=== PATIENT | female | born 1945 | race Caucasian/White ===

== ENCOUNTER 2017-10-25 11:21 | Emergency (ER) | payer MEDICARE ==
--- NOTE | 2017-10-25 14:32 | UC ---
Headache HPI - HPI Summary HPI Summary: headache that is starting in the back of her neck travels up over her head to her forehead--NSAIDS do make it better, no neuro defects, Is seeing a chiropractor for neck pain that seems to help at least momentarily-no fevers, chills, nausea or vomiting - History Of Current Complaint Chief Complaint: UCGeneralIllness Stated Complaint: HEADACHE Time Seen by Provider: 10/25/17 14:25 Hx Obtained From: Patient ?: No Onset/Duration: Gradual Onset, Lasting Weeks - 6, Still Present Onset Of Symptoms: Gradual Pain Intensity: 2 Timing: Intermittent, Lasting: - hours Character: Throbbing, Pressure Location of Headache: Diffuse - back of head radiating up over head some left sikhism pain Aggravating Factor(s): Nothing Allevating Factor(s): Medication - nsaids, Other (Noted In Comments) - sometimes chiropractor treatments help a bit Associated Signs And Symptoms: Positive: Negative - Allergies/Home Medications Allergies/Adverse Reactions: Allergies Allergy/AdvReac Type Severity Reaction Status Date / Time ENVIRONMENTAL Allergy SINUS Uncoded 10/25/17 13:45 SWELLS, ITCHY EYES Home Medications: Home Medications Lisinopril/HCTZ 10/12.5(NF) [Zestoretic 10/12.5(NF)] 1 tab PO DAILY 10/25/17 [ History Confirmed 10/25/17] Naproxen Sodium [Aleve] 220 mg PO BID PRN 10/25/17 [History Confirmed 10/25/17] [place]-3 Fatty Acids/Fish Oil [Fish Oil 1,000 mg Capsule] 1 each PO DAILY [History Confirmed 10/25/17] Potassium 99 mg PO DAILY 10/25/17 [History Confirmed 10/25/17] PMH/Surg Hx/FS Hx/Imm Hx Previously Healthy: No Endocrine History: Diabetes Cardiovascular History: Hypertension - Surgical History Surgical History: Yes Surgery Procedure, Year, and Place: 1979 HYSTERECTOMY, [facility]. 1969 OPEN CHOLECYSTECTOMY AND APPENDECTOMY, [facility] - Family History Known Family History: Positive: None - Social History Occupation: Retired Lives: With Family Alcohol Use: None Substance Use Type: None Smoking Status (MU): Former Smoker Type: Cigarettes Length of Time of Smoking/Using Tobacco: 3 YEARS Have You Smoked in the Last Year: No When Did the Patient Quit Smoking/Using Tobacco: 1966 Review of Systems Constitutional: Negative Skin: Negative Eyes: Negative ENT: Negative Respiratory: Negative Cardiovascular: Negative Gastrointestinal: Negative Genitourinary: Negative Motor: Negative Neurovascular: Negative Musculoskeletal: Negative Neurological: Headache Psychological: Negative Is Patient Immunocompromised?: No All Other Systems Reviewed And Are Negative: Yes Physical Exam Triage Information Reviewed: Yes Appearance: Well-Appearing, No Pain Distress, Obese Vital Signs: Initial Vital Signs Temp 97.8 F 10/25/17 13:38 Pulse 86 10/25/17 13:38 Resp 16 10/25/17 13:38 BP 160/94 10/25/17 13:38 Pulse Ox 95 10/25/17 13:38 Vital Signs Reviewed: Yes Eye Exam: Normal Eyes: Positive: Conjunctiva Clear ENT Exam: Normal ENT: Positive: Normal ENT inspection, Hearing grossly normal, Pharynx normal, TMs normal, Uvula midline. Negative: Nasal congestion, Tonsillar swelling, Tonsillar exudate, Trismus, Muffled voice, Hoarse voice, Dental tenderness, Sinus tenderness Dental Exam: Normal Neck exam: Normal Neck: Positive: Supple, Nontender, No Lymphadenopathy Respiratory Exam: Normal Respiratory: Positive: Chest non-tender, Lungs clear, Normal breath sounds, No respiratory distress, No accessory muscle use Cardiovascular Exam: Normal Cardiovascular: Positive: RRR, No Murmur, Pulses Normal, Brisk Capillary Refill Musculoskeletal Exam: Normal Musculoskeletal: Positive: Strength Intact, ROM Intact, No Edema Neurological Exam: Normal Neurological: Positive: Alert, Muscle Tone Normal Psychological Exam: Normal Skin Exam: Normal Diagnostics - Laboratory Diagnostic Studies Completed/Ordered: Ct Brain-no acute pathology - Radiology No standard instances Xray Interpretation: Positive (See Comments) - mild degenerative and osteoarthritic changes Radiology Interpretation Completed By: Radiologist Headache Course/Dx - Course Course Of Treatment: lab studies, take bp meds, follow with neurology and or PCP [facility] - Differential Dx/Diagnosis Provider Diagnoses: HYpertension in poor control, chronic headache, cervical spine arthritis Discharge - Discharge Plan Condition: Stable Disposition: HOME Patient Education Materials: Hypertension (ED), General Headache (ED) Referrals: [facility] [Outside] - As Soon As Possible Alonso Stevenson MD [Medical Doctor] - As Soon As Possible
--- NOTE | 2017-10-25 15:12 | RAD ---
HISTORY: Cervical pain, left-sided COMPARISONS: None VIEWS: 6, Frontal, lateral, open-mouth odontoid, and bilateral oblique views of the cervical spine. FINDINGS: The cervical spine is visualized from the skull base through T1. ALIGNMENT: The alignment is normal. VERTEBRAL BODIES: There is multilevel anterolateral marginal osteophyte formation. JOINTS: There is mild uncovertebral and facet hypertrophic change. On the oblique views, there is no osseous neural foraminal narrowing. INTERVERTEBRAL DISCS: There is diffuse loss of intervertebral disc height. SOFT TISSUE: The prevertebral soft tissues are normal. OTHER: The skull base is normal. The lung apices are clear. IMPRESSION: MILD DEGENERATIVE DISC DISEASE AND OSTEOARTHRITIS.
[2017-10-25 15:39] VITALS: BP 00/00
--- NOTE | 2017-10-25 15:45 | RAD ---
INDICATION: Headache. COMPARISON: There are no prior studies available for comparison. TECHNIQUE: Contiguous axial sections of the brain were obtained from the skull base to the vertex without contrast. FINDINGS: The ventricles, cisterns and sulci are enlarged consistent with diffuse atrophy. No significant focal abnormality or mass effect is seen. There is no evidence for hemorrhage. No significant focal osseous abnormality is seen. The visualized portion of the paranasal sinuses and mastoid air cells appear clear. IMPRESSION: NO EVIDENCE FOR ACUTE INTRACRANIAL ABNORMALITY.
[2017-10-25 18:39] LABS: ABS Basophils 0 10^3/ul (0-0.2); ABS Eosinophils 0.1 10^3/ul (0-0.6); ABS Lymphocytes 1.2 10^3/ul (1.0-4.8); ABS Monocytes 0.6 10^3/ul (0-0.8); ABS Neutrophils 9.1 10^3/ul (1.5-7.7); ABS Nucleated RBC 0 10^3/ul; Eosinophil % 0.9 % (0-6); Hematocrit 35 % (35-47); Hemoglobin 11.2 g/dl (12.0-16.0); Mean Corpuscular HGB Conc 32 g/dl (31-36); Mean Corpuscular Hemoglobin 31 pg (27-31); Mean Corpuscular Volume 97 fL (80-97); Mean Platelet Volume 9 um3 (7.4-10.4); Nucleated Red Blood Cells % 0; Platelet Count 241 10^3/ul (150-450); Red Blood Count 3.58 10^6/ul (4.0-5.4); Red Cell Distribution Width 15 % (10.5-15); White Blood Count 11.1 10^3/ul (3.5-10.8)
[2017-10-25 18:51] LABS: EGFR Non-African American 44.3 (>60)
--- NOTE | 2017-10-26 13:28 | UC ---
- Progress Note Progress Note: PLS CALL PATIENT AND ADVISE TO CALL PCP FOR F/U IN THE NEXT FEW WEEKS. SLIGHTLY ELEVATED WBC COUNT AND ELEVATED CRP. THIS IS LIKELY DUE TO ACUTE INFLAMMATORY CONDITION. SEEK FOLLOW-UP WITH YOUR PCP FOR RE-EVALUATION. SEVERAL OTHER SLIGHTLY ABNORMAL READINGS IN BLOOD COUNT AND ELECTROLYTES AND KIDNEY FUNCTION. NO ACUTE INTERVENTION REQUIRED BUT NEEDS TO BE FOLLOWED-UP BY PCP. - STEVEN SHAW MD
== END 2017-10-25 16:18 | disposition home or self-care (01) ==
LOC: UCEAST 11:21
DX: R51 Headache (principal); M50.30 Other cervical disc degeneration, unspecified cervical region; M47.812 Spondylosis without myelopathy or radiculopathy, cervical region; I10 Essential (primary) hypertension; E11.9 Type 2 diabetes mellitus without complications; E66.9 Obesity, unspecified; Z90.710 Acquired absence of both cervix and uterus; Z90.49 Acquired absence of other specified parts of digestive tract; Z87.891 Personal history of nicotine dependence
CPT/HCPCS: 36415; 70450; 72050; 80048; 85025; 85652; 86140; 99211; G0463

== ENCOUNTER 2017-11-27 09:39 | Day surgery (SDC) | payer MEDICARE ==
[2017-11-27] MEDS ORDERED: Bupivacaine 0.5% SDV PF* 10-30ML VIAL ONE (09:57)
[2017-11-27] MEDS ORDERED: Bupivacaine 0.25% SDV* 30 ML ONE (09:57)
[2017-11-27] MEDS ORDERED: Lidocaine 1%* 5 ML VIAL ONE (09:59)
[2017-11-27 10:00] VITALS: BP 186/59
[2017-11-27] MEDS ORDERED: Lidocaine 1.5% EPI 1:200,000* 30 ML SDV ONE (10:20)
--- NOTE | 2017-11-28 12:04 | OP ---
CC: French Ayala MD; Sayda Choudhury OD OPERATIVE REPORT: DATE OF OPERATION: 11/27/16 DATE OF : 41 SURGEON: Kamron Bridges MD. [employer]AW CARRIAGE OPERATOR: None. ANESTHESIA: 1% lidocaine plain with epinephrine used locally. PROCEDURE DIAGNOSIS: Left temporal headache. POSTPROCEDURE DIAGNOSIS: Left temporal headache. OPERATIVE PROCEDURE: Left temporal artery biopsy. ESTIMATED BLOOD LOSS: Minimal. SPECIMENS: Left temporal artery biopsy. DRAINS: None. COMPLICATIONS: None. COUNTS: Instrument, needle, and sponge counts were correct. DESCRIPTION OF PROCEDURE: The patient was brought to the operating room and placed on the table supi ne. Warming blanket was placed. The left temporal region was prepped and sterilely draped and time- out was performed. Local anesthetic was infiltrated into the skin and soft tissue and an oblique inc ision was made along the course of the palpable artery. Subcutaneous tissues were debrided and caute ry was used to achieve hemostasis. The left superficial temporal artery was identified and dissected free along its course for about 2.5 cm. The vessel was clipped proximally and distally and the inte rvening segment was excised and submitted to pathology in formalin. Hemostasis was assured. The wou nd was closed with 4-0 Vicryl in a running subcuticular fashion. DermaFlex was applied. The patient tolerated the procedure well. [id number]/[facility] #: [id number]
== END 2017-11-27 11:30 | disposition home or self-care (01) ==
LOC: OR 09:39
PROVIDERS: ATTEND Surgery
DX: R51 Headache (principal); I67.2 Cerebral atherosclerosis; Z87.891 Personal history of nicotine dependence; M31.6 Other giant cell arteritis; E11.9 Type 2 diabetes mellitus without complications; Z79.84 Long term (current) use of oral hypoglycemic drugs; I10 Essential (primary) hypertension
CPT/HCPCS: 88305

== ENCOUNTER 2021-04-30 01:58 | Inpatient (IN) ==
[2021-04-30] MEDS ORDERED: Furosemide 20 mg/2 ml IV VIAL IV SLOW PU ONE (04:16)
[2021-04-30 05:14] LABS: ABS Basophils 0.1 10^3/ul (0-0.2); ABS Eosinophils 0.1 10^3/ul (0-0.6); ABS Lymphocytes 0.5 10^3/ul (1.0-4.8); ABS Monocytes 0.5 10^3/ul (0-0.8); ABS Neutrophils 6.1 10^3/ul (1.5-7.7); Hematocrit 34 % (35-47); Hemoglobin 10.6 g/dL (12.0-16.0); Lymphocyte % 7.2 %; Mean Corpuscular HGB Conc 31 g/dL (31-36); Mean Corpuscular Hemoglobin 32 pg (27-31); Mean Corpuscular Volume 102 fL (80-97); Mean Platelet Volume 8.4 fL (7.4-10.4); Platelet Count 195 10^3/uL (150-450); Red Blood Count 3.33 10^6 /uL (3.70-4.87); Red Cell Distribution Width 16 % (10-15); White Blood Count 7.2 10^3/uL (3.5-10.8)
[2021-04-30 05:32] LABS: ALT 14 U/L (7-52); AST 23 U/L (13-39); Albumin 3.7 g/dL (3.2-5.2); Alkaline Phosphatase 75 U/L (35-149); Blood Urea Nitrogen 60 mg/dL (6-24); CO2 Carbon Dioxide 22 mmol/L (22-32); Calcium 8.7 mg/dL (8.6-10.3); Chloride 108 mmol/L (101-111); EGFR African American 22.7 (>60); EGFR Non-African American 18.8 (>60); Globulin 3.7 g/dL (2-4); Glucose 133 mg/dL (70-100); Sodium 139 mmol/L (135-145); Total Protein 7.4 g/dL (6.4-8.9)
[2021-04-30 05:38] LABS: Anion Gap 9 mmol/L (2-11); Potassium 5.2 mmol/L (3.5-5.0)
[2021-04-30 05:39] LABS: Troponin I 0.03 ng/mL (<0.03)
[2021-04-30 06:13] LABS: Magnesium 2.6 mg/dL (1.9-2.7)
[2021-04-30] MEDS ORDERED: cloNIDine 0.3 MG PATCH 0.3 MG/24 HR 7 DAY PATCH TRANSDERM SCH (07:00)
[2021-04-30] MEDS ORDERED: Furosemide 40 mg/4 ml IV VIAL IV SLOW PU SCH (09:00)
[2021-04-30] MEDS: Heparin 5000 UNITS/ML 1 mL VIAL SUBCUT SCH ×2 (09:33→20:02)
[2021-04-30 10:18] LABS: Troponin I 0.03 ng/mL (<0.03)
[2021-04-30] MEDS: Aspirin EC 81 mg TAB.EC (enteric coated) PO SCH (10:41)
[2021-04-30] MEDS ORDERED: Atropine 1 MG/ML INJ 1 ML VIAL IV PUSH PRN ×2 (14:28→17:43)
[2021-04-30 15:24] LABS: TSH Ultra Thyroid Stim Horm 10.73 mcIU/mL (0.34-5.60)
[2021-04-30 15:25] LABS: CO2 Carbon Dioxide 20 mmol/L (22-32); Calcium 8.7 mg/dL (8.6-10.3); Chloride 111 mmol/L (101-111); Sodium 139 mmol/L (135-145)
[2021-04-30 15:30] LABS: Blood Urea Nitrogen 61 mg/dL (6-24); EGFR African American 24.5 (>60); EGFR Non-African American 20.3 (>60); Glucose 54 mg/dL (70-100); Phosphorus 4.4 mg/dL (2.5-5.0)
[2021-04-30 16:33] LABS: Troponin I 0.03 ng/mL (<0.03)
[2021-04-30 16:34] LABS: Anion Gap 8 mmol/L (2-11)
[2021-04-30 17:22] LABS: Magnesium 2.5 mg/dL (1.9-2.7)
[2021-04-30 17:25] LABS: Potassium Redraw 5.1 mmol/L (3.5-5.0)
[2021-04-30] MEDS ORDERED: Furosemide 40 mg/4 ml IV VIAL IV SLOW PU ONE (18:55)
[2021-04-30] MEDS: Nystatin TOP POWDER 15 GM BTL TOPICAL SCH (23:13)
[2021-05-01] MEDS: Heparin 5000 UNITS/ML 1 mL VIAL SUBCUT SCH (05:17)
[2021-05-01] MEDS ORDERED: Sodium Polystyrene ORAL.SUSP 15 GM/60 ML BTL PO ONE (06:54)
[2021-05-01 07:52] LABS: ABS Eosinophils 0.2 10^3/ul (0-0.6); ABS Lymphocytes 0.6 10^3/ul (1.0-4.8); ABS Monocytes 0.6 10^3/ul (0-0.8); ABS Neutrophils 7.1 10^3/ul (1.5-7.7); Eosinophil % 2.1 %; Hematocrit 33 % (35-47); Hemoglobin 10.5 g/dL (12.0-16.0); Lymphocyte % 6.6 %; Mean Corpuscular HGB Conc 32 g/dL (31-36); Mean Corpuscular Hemoglobin 32 pg (27-31); Mean Corpuscular Volume 101 fL (80-97); Platelet Count 181 10^3/uL (150-450); Red Blood Count 3.31 10^6 /uL (3.70-4.87); Red Cell Distribution Width 17 % (10-15); White Blood Count 8.4 10^3/uL (3.5-10.8)
[2021-05-01] MEDS ORDERED: Enoxaparin 30 MG/0.3 ML SYR SUBCUT SCH (08:00)
[2021-05-01 08:08] LABS: Anion Gap 8 mmol/L (2-11); Blood Urea Nitrogen 52 mg/dL (6-24); CO2 Carbon Dioxide 26 mmol/L (22-32); Calcium 9.1 mg/dL (8.6-10.3); Chloride 107 mmol/L (101-111); EGFR African American 25.6 (>60); EGFR Non-African American 21.2 (>60); Glucose 85 mg/dL (70-100); Magnesium 2.2 mg/dL (1.9-2.7); Phosphorus 4.4 mg/dL (2.5-5.0); Potassium 4.8 mmol/L (3.5-5.0); Sodium 141 mmol/L (135-145)
[2021-05-01 08:15] LABS: Troponin I 0.03 ng/mL (<0.03)
[2021-05-01] MEDS: Nystatin TOP POWDER 15 GM BTL TOPICAL SCH ×2 (08:30→20:27)
[2021-05-01] MEDS: Aspirin EC 81 mg TAB.EC (enteric coated) PO SCH (08:30)
[2021-05-01 11:01] LABS: TSH Ultra Thyroid Stim Horm 7.33 mcIU/mL (0.34-5.60)
[2021-05-02 06:13] LABS: ABS Eosinophils 0.1 10^3/ul (0-0.6); ABS Lymphocytes 0.5 10^3/ul (1.0-4.8); ABS Monocytes 0.7 10^3/ul (0-0.8); ABS Neutrophils 6.8 10^3/ul (1.5-7.7); Eosinophil % 1.3 %; Hematocrit 31 % (35-47); Lymphocyte % 5.7 %; Mean Corpuscular HGB Conc 32 g/dL (31-36); Mean Corpuscular Hemoglobin 32 pg (27-31); Mean Corpuscular Volume 101 fL (80-97); Mean Platelet Volume 8.2 fL (7.4-10.4); Platelet Count 164 10^3/uL (150-450); Red Blood Count 3.12 10^6 /uL (3.70-4.87); Red Cell Distribution Width 17 % (10-15); White Blood Count 8.1 10^3/uL (3.5-10.8)
[2021-05-02 06:32] LABS: Calcium 8.8 mg/dL (8.6-10.3); EGFR African American 25.3 (>60); EGFR Non-African American 20.9 (>60); Magnesium 1.9 mg/dL (1.9-2.7); Potassium 4.5 mmol/L (3.5-5.0)
[2021-05-02] MEDS ORDERED: Magnesium Sulfate IV 1GM/100ML 1 GM/100 ML BAG IV ONE (07:35)
[2021-05-02] MEDS: Aspirin EC 81 mg TAB.EC (enteric coated) PO SCH (08:32)
[2021-05-02] MEDS: Nystatin TOP POWDER 15 GM BTL TOPICAL SCH ×2 (08:51→21:20)
[2021-05-02] MEDS: Heparin 5000 UNITS/ML 1 mL VIAL SUBCUT SCH ×2 (13:01→20:16)
[2021-05-03] MEDS ORDERED: Furosemide 40 mg/4 ml IV VIAL IV ONE (00:22)
[2021-05-03] MEDS: Heparin 5000 UNITS/ML 1 mL VIAL SUBCUT SCH ×3 (06:20→23:40)
[2021-05-03 08:20] LABS: Calcium 8.6 mg/dL (8.6-10.3); EGFR African American 28.1 (>60); EGFR Non-African American 23.2 (>60); Potassium 4.5 mmol/L (3.5-5.0)
[2021-05-03] MEDS: Aspirin EC 81 mg TAB.EC (enteric coated) PO SCH (08:30)
[2021-05-03] MEDS: Nystatin TOP POWDER 15 GM BTL TOPICAL SCH ×2 (08:32→23:40)
[2021-05-03] MEDS ORDERED: Remdesivir 100 mg Vial 200 MG in NS 0.9% 250 ml 210 ML IV ONE (10:02)
[2021-05-03] MEDS ORDERED: Furosemide 40 mg/4 ml IV VIAL IV SLOW PU ONE (18:37)
[2021-05-04 06:00] LABS: ABS Lymphocytes 0.2 10^3/ul (1.0-4.8); ABS Monocytes 0.2 10^3/ul (0-0.8); Eosinophil % 0.1 %; Hematocrit 36 % (35-47); Hemoglobin 10.5 g/dL (12.0-16.0); Lymphocyte % 3.9 %; Mean Corpuscular HGB Conc 30 g/dL (31-36); Mean Corpuscular Hemoglobin 32 pg (27-31); Mean Corpuscular Volume 106 fL (80-97); Mean Platelet Volume 7.8 fL (7.4-10.4); Platelet Count 161 10^3/uL (150-450); Red Blood Count 3.34 10^6 /uL (3.70-4.87); Red Cell Distribution Width 17 % (10-15); White Blood Count 4.4 10^3/uL (3.5-10.8)
[2021-05-04 06:11] LABS: Albumin 3.6 g/dL (3.2-5.2); Albumin/Globulin Ratio 0.9 (1-3); Calcium 8.7 mg/dL (8.6-10.3); EGFR African American 25.1 (>60); EGFR Non-African American 20.8 (>60); Phosphorus 4.7 mg/dL (2.5-5.0); Total Bilirubin 0.5 mg/dL (0.2-1.0); Total Protein 7.6 g/dL (6.4-8.9)
[2021-05-04] MEDS: Heparin 5000 UNITS/ML 1 mL VIAL SUBCUT SCH ×3 (06:22→20:51)
[2021-05-04 07:11] LABS: Magnesium 1.8 mg/dL (1.9-2.7)
[2021-05-04 07:40] LABS: Potassium 5.3 mmol/L (3.5-5.0)
[2021-05-04] MEDS ORDERED: Furosemide 40 mg/4 ml IV VIAL IV ONE (08:25)
[2021-05-04] MEDS ORDERED: Magnesium Sulfate 2 gm BAG 2 GM/50 ML BAG IVPB ONE (08:26)
[2021-05-04] MEDS: Aspirin EC 81 mg TAB.EC (enteric coated) PO SCH (09:24)
[2021-05-04] MEDS: Remdesivir 100 mg Vial 100 MG in NS 0.9% 250 ml 230 ML IV SCH (09:25)
[2021-05-04] MEDS: Nystatin TOP POWDER 15 GM BTL TOPICAL SCH ×2 (09:26→20:51)
[2021-05-04 20:08] LABS: Calcium 8.7 mg/dL (8.6-10.3); EGFR African American 20.4 (>60); EGFR Non-African American 16.9 (>60)
[2021-05-04 20:09] LABS: Potassium 5.2 mmol/L (3.5-5.0)
[2021-05-04] MEDS ORDERED: Patiromer POWDER 8.4 GM PAK PO ONE (20:27)
[2021-05-05 04:56] LABS: ABS Lymphocytes 0.2 10^3/ul (1.0-4.8); ABS Monocytes 0.3 10^3/ul (0-0.8); ABS Neutrophils 4.2 10^3/ul (1.5-7.7); Hematocrit 32 % (35-47); Hemoglobin 9.9 g/dL (12.0-16.0); Lymphocyte % 3.8 %; Mean Corpuscular HGB Conc 31 g/dL (31-36); Mean Corpuscular Hemoglobin 31 pg (27-31); Mean Corpuscular Volume 102 fL (80-97); Mean Platelet Volume 8.4 fL (7.4-10.4); Nucleated Red Blood Cells % 0.1; Platelet Count 206 10^3/uL (150-450); Red Blood Count 3.17 10^6 /uL (3.70-4.87); Red Cell Distribution Width 16 % (10-15); White Blood Count 4.7 10^3/uL (3.5-10.8)
[2021-05-05 05:28] LABS: EGFR African American 20.7 (>60); EGFR Non-African American 17.1 (>60); Magnesium 2.4 mg/dL (1.9-2.7); Phosphorus 4.7 mg/dL (2.5-5.0)
[2021-05-05 05:33] LABS: Potassium 5.5 mmol/L (3.5-5.0)
[2021-05-05] MEDS ORDERED: Sodium Polystyrene ORAL.SUSP 15 GM/60 ML BTL PO ONE (05:49)
[2021-05-05] MEDS: Furosemide 40 mg/4 ml IV VIAL IV ONE ×3 (06:06→10:01)
[2021-05-05] MEDS: Heparin 5000 UNITS/ML 1 mL VIAL SUBCUT SCH ×3 (06:06→20:44)
[2021-05-05] MEDS: Dextrose 50% Syringe 50 ml 25 GM/50 ML SYRINGE IV PUSH ONE ×2 (06:06→09:52)
[2021-05-05] MEDS ORDERED: Buffered Lidocaine 1% SYRIN 1 ml INTRADERM ONE (08:38)
[2021-05-05] MEDS ORDERED: SODIUM ZIRCONIUM CYCLOSILICATE 10 GM PACKET PO ONE (08:42)
[2021-05-05] MEDS ORDERED: Furosemide 40 mg/4 ml IV VIAL IV ONE (09:29)
[2021-05-05] MEDS: Nystatin TOP POWDER 15 GM BTL TOPICAL SCH ×2 (09:52→20:45)
[2021-05-05] MEDS: Aspirin EC 81 mg TAB.EC (enteric coated) PO SCH (09:52)
[2021-05-05] MEDS: Remdesivir 100 mg Vial 100 MG in NS 0.9% 250 ml 230 ML IV SCH (10:02)
[2021-05-05 13:28] LABS: Calcium 8.6 mg/dL (8.6-10.3); EGFR African American 20.2 (>60); EGFR Non-African American 16.7 (>60); Potassium 4.8 mmol/L (3.5-5.0)
[2021-05-05] MEDS ORDERED: Furosemide 100 mg/10 ml IV VIAL IV ONE ×2 (14:14→15:00)
[2021-05-05] MEDS: Furosemide 100 mg/10 ml IV 100 MG in NS 0.9% 100 ml BAG 90 ML IV SCH ×2 (15:20→20:34)
[2021-05-05 23:57] LABS: Urine Appearance Cloudy; Urine Bilirubin Negative (Negative); Urine Blood Negative (Negative); Urine Color Yellow; Urine Glucose Negative (Negative); Urine Ketones Negative (Negative); Urine Nitrite Negative (Negative); Urine Protein Negative (Negative); Urine Specific Gravity 1.011 (1.002-1.030); Urine Urobilinogen Negative (Negative)
[2021-05-06 00:08] LABS: Urine Bacteria 2+ (Absent); Urine Red Blood Cell Absent (Absent); Urine Squamous Epithelial Cell Present (Absent); Urine White Blood Cell 2+(11-20/hpf) (Absent)
[2021-05-06] MEDS: Furosemide 100 mg/10 ml IV 100 MG in NS 0.9% 100 ml BAG 90 ML IV SCH ×5 (01:53→20:10)
[2021-05-06] MEDS: Heparin 5000 UNITS/ML 1 mL VIAL SUBCUT SCH ×3 (06:19→20:27)
[2021-05-06 06:37] LABS: Hematocrit 30 % (35-47); Hemoglobin 9.8 g/dL (12.0-16.0); Mean Corpuscular HGB Conc 33 g/dL (31-36); Mean Corpuscular Hemoglobin 32 pg (27-31); Mean Corpuscular Volume 98 fL (80-97); Mean Platelet Volume 8.2 fL (7.4-10.4); Platelet Count 211 10^3/uL (150-450); Red Blood Count 3.07 10^6 /uL (3.70-4.87); Red Cell Distribution Width 16 % (10-15); White Blood Count 5.7 10^3/uL (3.5-10.8)
[2021-05-06 07:12] LABS: Albumin 3.6 g/dL (3.2-5.2); Calcium 8.4 mg/dL (8.6-10.3); Magnesium 2.3 mg/dL (1.9-2.7); Potassium 4.7 mmol/L (3.5-5.0); Total Bilirubin 0.7 mg/dL (0.2-1.0)
[2021-05-06 07:18] LABS: Albumin/Globulin Ratio 1.1 (1-3); EGFR African American 19.3 (>60); EGFR Non-African American 15.9 (>60); Globulin 3.3 g/dL (2-4); Phosphorus 5.3 mg/dL (2.5-5.0); Total Protein 6.9 g/dL (6.4-8.9)
[2021-05-06] MEDS: Aspirin EC 81 mg TAB.EC (enteric coated) PO SCH (08:50)
[2021-05-06] MEDS: Nystatin TOP POWDER 15 GM BTL TOPICAL SCH ×2 (08:50→23:11)
[2021-05-06] MEDS: Remdesivir 100 mg Vial 100 MG in NS 0.9% 250 ml 230 ML IV SCH (08:59)
[2021-05-06] MEDS ORDERED: Furosemide 100 mg/10 ml IV VIAL ONE (19:53)
[2021-05-07] MEDS ORDERED: Furosemide 100 mg/10 ml IV VIAL ONE ×2 (01:14→05:28)
[2021-05-07] MEDS: Furosemide 100 mg/10 ml IV 100 MG in NS 0.9% 100 ml BAG 90 ML IV SCH ×9 (01:27→21:20)
[2021-05-07] MEDS: Ondansetron 4 mg VIAL 2 MG/ML 2 ml VIAL IV PRN ×2 (01:27→07:54)
[2021-05-07 05:21] LABS: Hematocrit 32 % (35-47); Hemoglobin 9.8 g/dL (12.0-16.0); Mean Corpuscular HGB Conc 31 g/dL (31-36); Mean Corpuscular Hemoglobin 31 pg (27-31); Mean Corpuscular Volume 99 fL (80-97); Platelet Count 227 10^3/uL (150-450); Red Cell Distribution Width 16 % (10-15)
[2021-05-07 05:45] LABS: Albumin 3.6 g/dL (3.2-5.2); Calcium 8.3 mg/dL (8.6-10.3); EGFR African American 19.6 (>60); EGFR Non-African American 16.2 (>60); Globulin 3.6 g/dL (2-4); Magnesium 2.2 mg/dL (1.9-2.7); Phosphorus 5.5 mg/dL (2.5-5.0); Potassium 4.2 mmol/L (3.5-5.0); Total Bilirubin 0.6 mg/dL (0.2-1.0); Total Protein 7.2 g/dL (6.4-8.9)
[2021-05-07] MEDS: Heparin 5000 UNITS/ML 1 mL VIAL SUBCUT SCH ×3 (06:27→21:20)
[2021-05-07] MEDS: Polyethylene Glycol 3350 17 GM PACKET PO PRN (07:50)
[2021-05-07] MEDS: Nystatin TOP POWDER 15 GM BTL TOPICAL SCH ×2 (07:55→21:20)
[2021-05-07] MEDS: Aspirin EC 81 mg TAB.EC (enteric coated) PO SCH (07:55)
[2021-05-07] MEDS: Remdesivir 100 mg Vial 100 MG in NS 0.9% 250 ml 230 ML IV SCH (10:06)
[2021-05-07] MEDS: cefTRIAXone 1 gm/50 mL NS BAG 1 GM/50 ML BAG IVPB SCH (12:24)
[2021-05-07] MEDS ORDERED: Bumetanide IV 0.25 MG/ML 4 ml VIAL (1 mg) SLOW PUSH ONE (15:57)
[2021-05-07] MEDS: Albuterol HFA INHALER 8 gm MDI INH SCH ×2 (16:57→20:18)
[2021-05-07] MEDS ORDERED: Nitro 2% OINT (Nitroglycerin) 1 INCH/PAK TOPICAL ONE (18:14)
[2021-05-07] MEDS ORDERED: Nitro 2% OINT (Nitroglycerin) 1 INCH/PAK ONE (18:16)
[2021-05-07] MEDS: Saline FLUSH-CENTRAL 10 ML SYRINGE CENT\\PICC SCH (18:34)
[2021-05-07 21:13] LABS: Urine Appearance Clear; Urine Bilirubin Negative (Negative); Urine Blood Negative (Negative); Urine Color Yellow; Urine Glucose Negative (Negative); Urine Ketones Negative (Negative); Urine Nitrite Negative (Negative); Urine Protein Negative (Negative); Urine Specific Gravity 1.008 (1.002-1.030); Urine Urobilinogen Negative (Negative)
[2021-05-07 21:14] LABS: Calcium 8.1 mg/dL (8.6-10.3)
[2021-05-07 21:18] LABS: Potassium 4.9 mmol/L (3.5-5.0)
[2021-05-07 21:20] LABS: Urine Bacteria 1+ (Absent); Urine Red Blood Cell Trace(0-2/hpf) (Absent); Urine Squamous Epithelial Cell Present (Absent); Urine White Blood Cell Trace(0-5/hpf) (Absent)
[2021-05-07 21:20] LABS: EGFR African American 19.4 (>60); EGFR Non-African American 16.1 (>60)
[2021-05-08] MEDS: Furosemide 100 mg/10 ml IV 100 MG in NS 0.9% 100 ml BAG 90 ML IV SCH ×6 (00:06→14:52)
[2021-05-08] MEDS: Albuterol HFA INHALER 8 gm MDI INH SCH ×5 (01:50→15:17)
[2021-05-08] MEDS ORDERED: Albuterol/Ipratropium NEB.SOL (2.5/0.5 MG) 3 ML NEB.SOLN INH ONE (02:28)
[2021-05-08] MEDS ORDERED: Albuterol/Ipratropium NEB.SOL (2.5/0.5 MG) 3 ML NEB.SOLN ONE (02:31)
[2021-05-08 02:57] LABS: PCO2 Arterial 58 mmHg (35-45); PO2 Arterial 64 mmHg (80-100)
[2021-05-08] MEDS: Ondansetron 4 mg VIAL 2 MG/ML 2 ml VIAL IV PRN (03:45)
[2021-05-08 05:44] LABS: ALT 41 U/L (7-52); AST 29 U/L (13-39); Albumin 3.7 g/dL (3.2-5.2); Albumin/Globulin Ratio 0.9 (1-3); Alkaline Phosphatase 68 U/L (35-149); Anion Gap 12 mmol/L (2-11); Blood Urea Nitrogen 92 mg/dL (6-24); CO2 Carbon Dioxide 27 mmol/L (22-32); Calcium 8.4 mg/dL (8.6-10.3); Chloride 94 mmol/L (101-111); EGFR African American 18.5 (>60); EGFR Non-African American 15.3 (>60); Globulin 3.9 g/dL (2-4); Glucose 179 mg/dL (70-100); Magnesium 2.1 mg/dL (1.9-2.7); Phosphorus 5.9 mg/dL (2.5-5.0); Potassium 4.3 mmol/L (3.5-5.0); Sodium 133 mmol/L (135-145); Total Protein 7.6 g/dL (6.4-8.9)
[2021-05-08 05:54] LABS: Troponin I 0.03 ng/mL (<0.03)
[2021-05-08 05:56] LABS: Hematocrit 32 % (35-47); Hemoglobin 10.1 g/dL (12.0-16.0); Mean Corpuscular HGB Conc 32 g/dL (31-36); Mean Corpuscular Hemoglobin 31 pg (27-31); Mean Corpuscular Volume 98 fL (80-97); Platelet Count 223 10^3/uL (150-450); Red Blood Count 3.26 10^6 /uL (3.70-4.87); Red Cell Distribution Width 17 % (10-15); White Blood Count 13.2 10^3/uL (3.5-10.8)
[2021-05-08 05:57] LABS: PCO2 Arterial 55 mmHg (35-45); PO2 Arterial 77 mmHg (80-100)
[2021-05-08] MEDS: Saline FLUSH-CENTRAL 10 ML SYRINGE CENT\\PICC SCH ×2 (07:12→17:13)
[2021-05-08] MEDS: Aspirin EC 81 mg TAB.EC (enteric coated) PO SCH (07:17)
[2021-05-08] MEDS: Nystatin TOP POWDER 15 GM BTL TOPICAL SCH ×2 (08:02→19:41)
[2021-05-08] MEDS: Dexamethasone IV 4 MG/ML VIAL 1 ml VIAL IV SLOW PU SCH (08:03)
[2021-05-08] MEDS: Heparin 5000 UNITS/ML 1 mL VIAL SUBCUT SCH ×3 (08:03→21:41)
[2021-05-08] MEDS ORDERED: Morphine 2 MG/ML SYRINGE IV ONE (09:23)
[2021-05-08 11:06] LABS: Troponin I 0.04 ng/mL (<0.03)
[2021-05-08] MEDS: cefTRIAXone 1 gm/50 mL NS BAG 1 GM/50 ML BAG IVPB SCH (11:51)
[2021-05-08] MEDS ORDERED: Piperacillin/Tazobac ADVAN 3.375 GM in NS 0.9% 100 ml BAG 100 ML IV ONE (12:30)
[2021-05-08 12:43] LABS: PCO2 Arterial 62 mmHg (35-45); PO2 Arterial 65 mmHg (80-100)
[2021-05-08] MEDS ORDERED: Bumetanide IV 0.25 MG/ML 4 ml VIAL (1 mg) SLOW PUSH ONE (13:00)
[2021-05-08] MEDS ORDERED: Zosyn per Pharmacy NOTE FOLLOW UP SCH (13:00)
[2021-05-08] MEDS ORDERED: Albuterol/Ipratropium NEB.SOL (2.5/0.5 MG) 3 ML NEB.SOLN INH PRN (14:01)
[2021-05-08 14:27] LABS: Troponin I 0.03 ng/mL (<0.03)
[2021-05-08] MEDS: ZOSYN 3.375 GM Q12H per EXTENDED INFUSION IV SCH (16:00)
[2021-05-08] MEDS ORDERED: Bumetanide 10 MG/40 ML IV DRIP IV SCH (16:00)
[2021-05-08] MEDS ORDERED: BUMETANIDE IV SCH (16:00)
[2021-05-08] MEDS ORDERED: Morphine 2 MG/ML SYRINGE ONE (16:11)
[2021-05-08] MEDS: Morphine 2 MG/ML SYRINGE IV PRN ×4 (16:13→23:57)
[2021-05-08 16:41] LABS: Calcium 8.3 mg/dL (8.6-10.3); EGFR African American 19.6 (>60); EGFR Non-African American 16.2 (>60); Potassium 4.4 mmol/L (3.5-5.0)
[2021-05-08] MEDS: Bumetanide 10 MG/40 ML IV DRIP IV ONE (17:13)
[2021-05-08 17:34] LABS: Phosphorus 6.2 mg/dL (2.5-5.0)
[2021-05-08] MEDS: Albuterol/Ipratropium NEB.SOL (2.5/0.5 MG) 3 ML NEB.SOLN INH SCH ×2 (19:54→21:55)
[2021-05-09] MEDS: Bumetanide 10 MG/40 ML IV DRIP IV ONE (00:19)
[2021-05-09] MEDS: Albuterol/Ipratropium NEB.SOL (2.5/0.5 MG) 3 ML NEB.SOLN INH SCH (03:24)
[2021-05-09] MEDS: ZOSYN 3.375 GM Q12H per EXTENDED INFUSION IV SCH ×2 (04:31→16:27)
[2021-05-09] MEDS ORDERED: Bumetanide IV 10 MG in Premix IV 0 ML IV SCH (05:00)
[2021-05-09] MEDS: Heparin 5000 UNITS/ML 1 mL VIAL SUBCUT SCH ×3 (05:00→21:49)
[2021-05-09 05:37] LABS: Albumin 3.6 g/dL (3.2-5.2); Albumin/Globulin Ratio 0.9 (1-3); Calcium 8.4 mg/dL (8.6-10.3); EGFR African American 18.6 (>60); EGFR Non-African American 15.4 (>60); Globulin 3.8 g/dL (2-4); Magnesium 2.2 mg/dL (1.9-2.7); Phosphorus 7.7 mg/dL (2.5-5.0); Potassium 4.6 mmol/L (3.5-5.0); Total Bilirubin 0.8 mg/dL (0.2-1.0); Total Protein 7.4 g/dL (6.4-8.9)
[2021-05-09 06:06] LABS: Hematocrit 34 % (35-47); Hemoglobin 10.3 g/dL (12.0-16.0); Mean Corpuscular HGB Conc 30 g/dL (31-36); Mean Corpuscular Hemoglobin 30 pg (27-31); Mean Corpuscular Volume 100 fL (80-97); Mean Platelet Volume 9.9 fL (7.4-10.4); Platelet Count 215 10^3/uL (150-450); Red Blood Count 3.38 10^6 /uL (3.70-4.87); Red Cell Distribution Width 16 % (10-15); White Blood Count 13.9 10^3/uL (3.5-10.8)
[2021-05-09] MEDS: Morphine 2 MG/ML SYRINGE IV PRN (06:15)
[2021-05-09] MEDS ORDERED: Albuterol 2.5mg/3 ml (0.083%) NEB.SOLN INH ONE (06:33)
[2021-05-09 06:51] LABS: PCO2 Arterial 80 mmHg (35-45)
[2021-05-09 06:52] LABS: PO2 Arterial 55 mmHg (80-100)
[2021-05-09] MEDS: Saline FLUSH-CENTRAL 10 ML SYRINGE CENT\\PICC SCH ×2 (07:53→17:39)
[2021-05-09] MEDS ORDERED: Succinylcholine 200 mg VIAL 20 mg/ml 10 ml VIAL (200 mg) ONE (08:03)
[2021-05-09] MEDS ORDERED: Propofol 10 mg/ml 100 ML BTL 100 ML ONE ×3 (08:06→12:30)
[2021-05-09] MEDS ORDERED: fentaNYL 250 mcg/5 ml 50 MCG/ML 5 ml VIAL (250 MCG) ONE (08:18)
[2021-05-09] MEDS ORDERED: Etomidate 40 mg/20 ml (2 MG/ML) 20 ml VIAL (40 mg) ONE (08:18)
[2021-05-09] MEDS ORDERED: Albuterol/Ipratropium NEB.SOL (2.5/0.5 MG) 3 ML NEB.SOLN INH PRN (09:44)
[2021-05-09] MEDS ORDERED: Lidocaine 1% w EPI 1:100,000 MDV 20 ML VIAL ONE (09:49)
[2021-05-09] MEDS: Dexamethasone IV 4 MG/ML VIAL 1 ml VIAL IV SLOW PU SCH (10:13)
[2021-05-09] MEDS: Aspirin EC 81 mg TAB.EC (enteric coated) PO SCH (10:13)
[2021-05-09] MEDS: Nystatin TOP POWDER 15 GM BTL TOPICAL SCH ×2 (10:14→21:50)
[2021-05-09] MEDS: Pantoprazole VIAL 40 MG VIAL IV SCH (10:28)
[2021-05-09] MEDS: Chlorhexidine MOUTHWASH 0.12% 15 ML UDC SWISH SPIT SCH ×4 (10:28→21:49)
[2021-05-09 10:30] LABS: PCO2 Arterial 53 mmHg (35-45)
[2021-05-09 10:37] LABS: PO2 Arterial 48 mmHg (80-100)
[2021-05-09] MEDS: Bumetanide IV 10 MG in Premix IV 0 ML IV SCH ×3 (11:34→21:45)
[2021-05-09 12:22] LABS: Hepatitis B Surface Antigen Nonreactive (Nonreactive)
[2021-05-09 12:39] LABS: Hepatitis B Surface Ab Not Immune (Immune)
[2021-05-09] MEDS ORDERED: Heparin *DIALYSIS* ONLY 1,000 UNITS/ML VIAL DIALYSIS ONE (13:00)
[2021-05-09] MEDS ORDERED: Heparin 1,000 UNIT/ML 10 ml (10,000 UNITS) CATHLAB/DIALYSIS DIALYSIS ONE (14:00)
[2021-05-09 15:31] LABS: PCO2 Arterial 35 mmHg (35-45); PO2 Arterial 192 mmHg (80-100)
[2021-05-09] MEDS: Propofol 10 mg/ml 100 ML BTL 100 ML IV SCH ×3 (15:47→21:31)
[2021-05-09 17:38] LABS: Calcium 8.7 mg/dL (8.6-10.3); EGFR African American 32.2 (>60); EGFR Non-African American 26.6 (>60); Potassium 3.7 mmol/L (3.5-5.0)
[2021-05-10] MEDS: Morphine 2 MG/ML SYRINGE IV PRN ×2 (00:13→06:30)
[2021-05-10] MEDS: Propofol 10 mg/ml 100 ML BTL 100 ML IV SCH ×7 (01:07→23:40)
[2021-05-10] MEDS: Chlorhexidine MOUTHWASH 0.12% 15 ML UDC SWISH SPIT SCH ×6 (02:05→21:08)
[2021-05-10] MEDS: Bumetanide IV 10 MG in Premix IV 0 ML IV SCH ×5 (02:21→21:34)
[2021-05-10] MEDS: ZOSYN 3.375 GM Q12H per EXTENDED INFUSION IV SCH ×2 (04:45→16:29)
[2021-05-10] MEDS: Heparin 5000 UNITS/ML 1 mL VIAL SUBCUT SCH ×3 (05:48→21:08)
[2021-05-10 06:06] LABS: ABS Lymphocytes 0.3 10^3/ul (1.0-4.8); ABS Monocytes 0.5 10^3/ul (0-0.8); ABS Neutrophils 10.3 10^3/ul (1.5-7.7); Eosinophil % 0.3 %; Hematocrit 29 % (35-47); Hemoglobin 9.3 g/dL (12.0-16.0); Lymphocyte % 2.7 %; Mean Corpuscular HGB Conc 33 g/dL (31-36); Mean Corpuscular Hemoglobin 31 pg (27-31); Mean Corpuscular Volume 96 fL (80-97); Mean Platelet Volume 8.1 fL (7.4-10.4); Platelet Count 170 10^3/uL (150-450); Red Blood Count 2.99 10^6 /uL (3.70-4.87); Red Cell Distribution Width 16 % (10-15); White Blood Count 11.2 10^3/uL (3.5-10.8)
[2021-05-10 06:14] LABS: INR 1.38 (0.86-1.15)
[2021-05-10 06:22] LABS: Albumin 2.9 g/dL (3.2-5.2); Calcium 8.5 mg/dL (8.6-10.3); EGFR African American 28.4 (>60); EGFR Non-African American 23.5 (>60); Magnesium 1.9 mg/dL (1.9-2.7); Phosphorus 3.9 mg/dL (2.5-5.0); Potassium 3.6 mmol/L (3.5-5.0); Total Protein 6.1 g/dL (6.4-8.9)
[2021-05-10 06:23] LABS: Albumin/Globulin Ratio 0.9 (1-3); Globulin 3.2 g/dL (2-4); Total Bilirubin 0.8 mg/dL (0.2-1.0)
[2021-05-10] MEDS: Saline FLUSH-CENTRAL 10 ML SYRINGE CENT\\PICC SCH ×2 (06:48→18:07)
[2021-05-10] MEDS ORDERED: KCL 20 MEQ/100 ML IVPREMIX 20 MEQ/100 ML BAG IV ONE (07:40)
[2021-05-10] MEDS ORDERED: Magnesium Sulfate IV 1GM/100ML 1 GM/100 ML BAG IV ONE (07:41)
[2021-05-10] MEDS: Dexamethasone IV 4 MG/ML VIAL 1 ml VIAL IV SLOW PU SCH (08:46)
[2021-05-10] MEDS: Aspirin EC 81 mg TAB.EC (enteric coated) PO SCH (08:46)
[2021-05-10] MEDS: Nystatin TOP POWDER 15 GM BTL TOPICAL SCH ×2 (08:47→21:07)
[2021-05-10] MEDS: Pantoprazole VIAL 40 MG VIAL IV SCH (08:47)
[2021-05-10] MEDS ORDERED: KCL 20 MEQ/100 ML IVPREMIX 20 MEQ/100 ML BAG IV SCH (16:00)
[2021-05-10 17:12] LABS: Calcium 8.2 mg/dL (8.6-10.3); EGFR African American 28.3 (>60); EGFR Non-African American 23.3 (>60); Magnesium 2.1 mg/dL (1.9-2.7); Potassium 4.2 mmol/L (3.5-5.0)
[2021-05-10] MEDS ORDERED: fentaNYL 100 mcg/2 ml 50 MCG/ML VIAL IV SLOW PU PRN (20:33)
[2021-05-10] MEDS ORDERED: hydrALAZINE 20 mg/ml 1 ML Vial IV IV SLOW PU PRN (22:37)
[2021-05-11] MEDS ORDERED: fentaNYL INFUSION 50 mcg/mL VL 2,500 MCG/50 ML VIAL IV SCH ×2 (00:15→16:56)
[2021-05-11] MEDS: fentaNYL INFUSION 50 mcg/mL VL 2,500 MCG/50 ML VIAL IV SCH ×2 (00:35→11:48)
[2021-05-11] MEDS ORDERED: hydrALAZINE 20 mg/ml 1 ML Vial IV IV SLOW PU ONE ×2 (01:36→11:00)
[2021-05-11] MEDS ORDERED: hydrALAZINE 20 mg/ml 1 ML Vial IV IV SLOW PU PRN ×2 (01:36→16:57)
[2021-05-11] MEDS: Chlorhexidine MOUTHWASH 0.12% 15 ML UDC SWISH SPIT SCH ×6 (02:05→21:37)
[2021-05-11] MEDS: Bumetanide IV 10 MG in Premix IV 0 ML IV SCH ×4 (02:18→23:48)
[2021-05-11] MEDS: ZOSYN 3.375 GM Q12H per EXTENDED INFUSION IV SCH ×2 (03:58→17:40)
[2021-05-11] MEDS: Propofol 10 mg/ml 100 ML BTL 100 ML IV SCH ×4 (04:02→18:38)
[2021-05-11] MEDS: Heparin 5000 UNITS/ML 1 mL VIAL SUBCUT SCH ×3 (05:08→21:36)
[2021-05-11 05:23] LABS: ABS Lymphocytes 0.2 10^3/ul (1.0-4.8); ABS Monocytes 0.4 10^3/ul (0-0.8); ABS Neutrophils 7.3 10^3/ul (1.5-7.7); Hematocrit 29 % (35-47); Hemoglobin 9.3 g/dL (12.0-16.0); Lymphocyte % 2.8 %; Mean Corpuscular HGB Conc 32 g/dL (31-36); Mean Corpuscular Hemoglobin 30 pg (27-31); Mean Corpuscular Volume 95 fL (80-97); Mean Platelet Volume 8.2 fL (7.4-10.4); Nucleated Red Blood Cells % 0.1; Platelet Count 200 10^3/uL (150-450); Red Blood Count 3.06 10^6 /uL (3.70-4.87); Red Cell Distribution Width 17 % (10-15)
[2021-05-11 05:54] LABS: Albumin 2.8 g/dL (3.2-5.2); Albumin/Globulin Ratio 0.9 (1-3); Calcium 8.5 mg/dL (8.6-10.3); EGFR African American 28.6 (>60); EGFR Non-African American 23.6 (>60); Globulin 3.2 g/dL (2-4); Phosphorus 4.4 mg/dL (2.5-5.0); Potassium 4.1 mmol/L (3.5-5.0); Total Bilirubin 0.7 mg/dL (0.2-1.0)
[2021-05-11] MEDS: Saline FLUSH-CENTRAL 10 ML SYRINGE CENT\\PICC SCH ×2 (06:57→17:55)
[2021-05-11] MEDS: Aspirin EC 81 mg TAB.EC (enteric coated) PO SCH (08:29)
[2021-05-11] MEDS: Dexamethasone IV 4 MG/ML VIAL 1 ml VIAL IV SLOW PU SCH (08:29)
[2021-05-11] MEDS: Nystatin TOP POWDER 15 GM BTL TOPICAL SCH ×2 (08:29→21:36)
[2021-05-11] MEDS: Pantoprazole VIAL 40 MG VIAL IV SCH (08:29)
[2021-05-11] MEDS: Polyethylene Glycol 3350 17 GM PACKET PO PRN (21:36)
[2021-05-12] MEDS: Propofol 10 mg/ml 100 ML BTL 100 ML IV SCH ×5 (01:51→23:52)
[2021-05-12] MEDS: Chlorhexidine MOUTHWASH 0.12% 15 ML UDC SWISH SPIT SCH ×6 (02:39→22:43)
[2021-05-12 04:56] LABS: Hematocrit 30 % (35-47); Hemoglobin 9.6 g/dL (12.0-16.0); Mean Corpuscular HGB Conc 32 g/dL (31-36); Mean Corpuscular Hemoglobin 31 pg (27-31); Mean Corpuscular Volume 96 fL (80-97); Mean Platelet Volume 8.1 fL (7.4-10.4); Platelet Count 186 10^3/uL (150-450); Red Blood Count 3.14 10^6 /uL (3.70-4.87); Red Cell Distribution Width 16 % (10-15); White Blood Count 7.9 10^3/uL (3.5-10.8)
[2021-05-12 05:13] LABS: Albumin 2.7 g/dL (3.2-5.2); Albumin/Globulin Ratio 0.8 (1-3); Calcium 8.4 mg/dL (8.6-10.3); EGFR African American 26.7 (>60); EGFR Non-African American 22.1 (>60); Globulin 3.3 g/dL (2-4); Phosphorus 5.4 mg/dL (2.5-5.0); Potassium 4.6 mmol/L (3.5-5.0); Total Bilirubin 0.9 mg/dL (0.2-1.0)
[2021-05-12] MEDS: ZOSYN 3.375 GM Q12H per EXTENDED INFUSION IV SCH (05:28)
[2021-05-12 06:00] LABS: ABS Basophils 0.1 10^3/ul (0-0.2); ABS Lymphocytes 0.2 10^3/ul (1.0-4.8); ABS Monocytes 0.6 10^3/ul (0-0.8); Lymphocyte % 3.1 %
[2021-05-12] MEDS: Heparin 5000 UNITS/ML 1 mL VIAL SUBCUT SCH ×3 (06:05→22:43)
[2021-05-12] MEDS: Saline FLUSH-CENTRAL 10 ML SYRINGE CENT\\PICC SCH ×2 (06:12→21:10)
[2021-05-12] MEDS: Dexamethasone IV 4 MG/ML VIAL 1 ml VIAL IV SLOW PU SCH (08:50)
[2021-05-12] MEDS: Aspirin EC 81 mg TAB.EC (enteric coated) PO SCH (08:51)
[2021-05-12] MEDS: Pantoprazole VIAL 40 MG VIAL IV SCH (09:02)
[2021-05-12] MEDS: cefTRIAXone 1 gm/50 mL NS BAG 1 GM/50 ML BAG IVPB SCH (09:19)
[2021-05-12] MEDS ORDERED: Heparin 1,000 UNIT/ML 10 ml (10,000 UNITS) CATHLAB/DIALYSIS DIALYSIS ONE (10:00)
[2021-05-12] MEDS: Nystatin TOP POWDER 15 GM BTL TOPICAL SCH ×2 (10:04→22:43)
[2021-05-12] MEDS ORDERED: Propofol 10 mg/ml 100 ML BTL 100 ML ONE (10:27)
[2021-05-12] MEDS: fentaNYL INFUSION 50 mcg/mL VL 2,500 MCG/50 ML VIAL IV SCH ×2 (10:30→23:52)
[2021-05-12] MEDS: Propofol* 20 ML VIAL - FOR IV LINE PRIMING ONLY SCH ×2 (12:33→23:52)
[2021-05-12 12:43] LABS: Calcium 8.3 mg/dL (8.6-10.3); EGFR African American 27.8 (>60); Potassium 4.7 mmol/L (3.5-5.0)
[2021-05-12] MEDS: Polyethylene Glycol 3350 17 GM PACKET PO PRN (22:47)
[2021-05-13] MEDS: Chlorhexidine MOUTHWASH 0.12% 15 ML UDC SWISH SPIT SCH ×3 (01:32→11:18)
[2021-05-13 04:53] LABS: Hematocrit 32 % (35-47); Hemoglobin 9.9 g/dL (12.0-16.0); Mean Corpuscular HGB Conc 31 g/dL (31-36); Mean Corpuscular Hemoglobin 31 pg (27-31); Mean Corpuscular Volume 99 fL (80-97); Mean Platelet Volume 8.5 fL (7.4-10.4); Platelet Count 170 10^3/uL (150-450); Red Cell Distribution Width 17 % (10-15); White Blood Count 10.4 10^3/uL (3.5-10.8)
[2021-05-13 05:08] LABS: Albumin 2.8 g/dL (3.2-5.2); Albumin/Globulin Ratio 0.8 (1-3); EGFR African American 23.3 (>60); EGFR Non-African American 19.3 (>60); Globulin 3.4 g/dL (2-4); Magnesium 2.1 mg/dL (1.9-2.7); Phosphorus 7.5 mg/dL (2.5-5.0); Total Protein 6.2 g/dL (6.4-8.9)
[2021-05-13 05:30] LABS: ABS Lymphocytes 0.2 10^3/ul (1.0-4.8); ABS Neutrophils 9.2 10^3/ul (1.5-7.7); Eosinophil % 0.1 %; Lymphocyte % 2.3 %; Nucleated Red Blood Cells % 0.1
[2021-05-13 05:44] LABS: Potassium 5.6 mmol/L (3.5-5.0)
[2021-05-13] MEDS: Heparin 5000 UNITS/ML 1 mL VIAL SUBCUT SCH (05:48)
[2021-05-13] MEDS: Saline FLUSH-CENTRAL 10 ML SYRINGE CENT\\PICC SCH (05:52)
[2021-05-13] MEDS ORDERED: Patiromer POWDER 8.4 GM PAK PO ONE (05:58)
[2021-05-13] MEDS ORDERED: CALCIUM GLUCONATE 1GM/50ML NS 1 GM/50 ML BAG IV ONE (05:59)
[2021-05-13] MEDS ORDERED: Dextrose 50% Syringe 50 ml 25 GM/50 ML SYRINGE IV PUSH ONE (05:59)
[2021-05-13] MEDS ORDERED: Dextrose 50% VIAL 50 ml IV ONE (05:59)
[2021-05-13] MEDS: Dexamethasone IV 4 MG/ML VIAL 1 ml VIAL IV SLOW PU SCH (08:05)
[2021-05-13] MEDS: Aspirin EC 81 mg TAB.EC (enteric coated) PO SCH (08:05)
[2021-05-13] MEDS: Nystatin TOP POWDER 15 GM BTL TOPICAL SCH (08:14)
[2021-05-13] MEDS: cefTRIAXone 1 gm/50 mL NS BAG 1 GM/50 ML BAG IVPB SCH (08:48)
[2021-05-13] MEDS: Heparin 1,000 UNIT/ML 10 ml (10,000 UNITS) CATHLAB/DIALYSIS DIALYSIS ONE ×5 (09:00→13:17)
[2021-05-13] MEDS: Propofol 10 mg/ml 100 ML BTL 100 ML IV SCH (09:22)
[2021-05-13] MEDS: Pantoprazole VIAL 40 MG VIAL IV SCH (11:18)
[2021-05-13] MEDS ORDERED: LORazepam 2 mg VIAL 1 ml IV PUSH ONE (14:45)
[2021-05-13] MEDS ORDERED: Lorazepam PYXIS KEY ONE (14:56)
[2021-05-13] MEDS ORDERED: Morphine 10 MG/ML VIAL (1 ml) ONE (14:59)
[2021-05-13] MEDS ORDERED: LORazepam 2 mg VIAL 1 ml IV PUSH SCH (15:00)
[2021-05-13] MEDS ORDERED: Morphine PCA 5 MG/ML Titrate per Protocol PCA SCH (15:00)
[2021-05-13 16:52] VITALS: BP 62/41
== END 2021-05-13 15:50 | disposition expired | DRG 208 ==
LOC: EDHOLD 01:58 → ED 01:58 → MED 03:25 → SUATTDRO 05-01 16:00 → ICU 05-04 01:23 → MED 05-06 18:46 → ICU 05-07 11:19
PROVIDERS: ADMIT Student in an Organized Health Care Education/Training Program; ATTEND Internal Medicine